=== PATIENT | male | born 1990 | race Caucasian/White ===

== ENCOUNTER 2017-09-25 00:27 | Emergency (ER) | payer BC ==
[~2017-09-25] VITALS: Ht 200.7 cm; Wt 128.0 kg
[~2017-09-25 00:27] MED LIST: CYCL-36 PO; DICL-86 PO; Z.0.NO CURRENT MEDS
[2017-09-25 00:35] VITALS: BP 131/73; PULSE 94; RESP 16; TEMP 98.6
[2017-09-25] MEDS ORDERED: OMEP20TA93 PO (00:41)
--- NOTE | 2017-09-25 00:54 | PD ---
HPI Chief Complaint: Musculoskeletal Complaint Time Seen by Provider: 00:38 Travel History International Travel<30 days: No Contact w/Intl Traveler<30days: No Traveled to known affect area: No History of Present Illness HPI 27-year-old male here for evaluation of right hand and forearm injury. The patient was drinking alcohol at bar when he tried to punch one of the [employer] punching bags. Apparently he punched through the bag and his hand struck the back of the machine. He now has pain and swelling with obvious deformity to the distal forearm and right hand. He complains of some tingling sensation to the hand. No loss of sensation. No other injuries. Pain is 4 of 10, constant , worse with movement and palpation. He is right-hand dominant. [facility] Past Medical History GERD: Yes Influenza Vaccination: No Past Surgical History Tonsillectomy: Yes Social History Alcohol Use: Yes Tobacco Use: No Substance Use: No Allergies-Medications (Allergen,Severity, Reaction): Coded Allergies: No Known Allergies (Verified , 12/26/11) Reported Meds & Prescriptions Reported Meds & Active Scripts Active Reported Omeprazole 20 Mg Tab 20 Mg PO DAILY Review of Systems Except as stated in HPI: all other systems reviewed are Neg Physical Exam Narrative GENERAL: Well-developed, well-nourished, awake, alert, GCS 15, no apparent distress. SKIN: Focused skin assessment warm/dry. Small/superficial abrasion to the dorsum of the right hand between the second and third MCP joint. HEAD: Atraumatic. Normocephalic. EYES: Pupils equal and round. No scleral icterus. No injection or drainage. ENT: Mucous membranes pink and moist. NECK: Trachea midline. No JVD. CARDIOVASCULAR: Regular rate and rhythm. Bilateral distal radial pulses are brisk and equal. Normal capillary refill in right hand. RESPIRATORY: No accessory muscle use. Clear to auscultation. Breath sounds equal bilaterally. GASTROINTESTINAL: Abdomen soft, non-tender, nondistended. MUSCULOSKELETAL: Right hand with diffuse swelling with mild tenderness, right distal forearm with obvious deformity with edema and tenderness. Normal range of flexion and extension in the right wrist and hand. Right elbow and shoulder are without deformity, without tenderness. The rest of his joints and extremities are without deformity, without tenderness, with normal range of motion. All compartments in the right upper extremity are supple. NEUROLOGICAL: Awake and alert. No obvious cranial nerve deficits. Motor grossly within normal limits. Normal speech. PSYCHIATRIC: Appropriate mood and affect; insight and judgment normal. Data Data Last Documented VS Vital Signs Date Time Temp Pulse Resp B/P (MAP) Pulse Ox O2 Delivery O2 Flow Rate FiO2 09/25/17 00:35 98.6 94 16 131/73 (92) Orders Orders Forearm (2vws) (09/25/17 ) Hand, Complete ([id number]) (09/25/17 ) Cbc No Diff, Includes Plts (09/25/17 01:23) Basic Metabolic Panel (Bmp) (09/25/17 01:23) Prothrombin Time / Inr (Pt) (09/25/17 01:23) Act Partial Throm Time (Ptt) (09/25/17 01:23) Ketorolac Inj (Toradol Inj) (09/25/17 02:00) Labs Laboratory Tests Test 09/25/17 01:35 White Blood Count 7.0 TH/MM3 Red Blood Count 4.83 MIL/MM3 Hemoglobin 14.6 GM/DL Hematocrit 40.8 % Mean Corpuscular Volume 84.4 FL Mean Corpuscular Hemoglobin 30.3 PG Mean Corpuscular Hemoglobin Concent 35.9 % Red Cell Distribution Width 13.0 % Platelet Count 218 TH/MM3 Mean Platelet Volume 8.2 FL MDM Medical Decision Making Medical Screen Exam Complete: Yes Emergency Medical Condition: Yes Differential Diagnosis Right hand fracture, right forearm fracture Narrative Course Right hand x-ray: No evidence of acute bony injury. Right forearm x-ray: Angulated transverse fracture of the distal one third shaft of the radius. Case discussed with on-call orthopedist Dr. Thompson who would like the patient to follow-up in his office early this week. Patient would likely need ORIF, however he would like to do this as an outpatient. The patient is happy with this plan. He'll be placed in a sugar tong splint. Diagnosis Primary Impression: Closed right radial fracture Qualified Codes: S52.321A - Displaced transverse fracture of shaft of right radius, initial encounter for closed fracture Referrals: Shawn Thompson Jr., MD 2 days Orthopedist Additional Instructions: Follow-up with orthopedic surgeon Dr. Thompson by calling his office on Wednesday. Return to the emergency department for worsening symptoms or any other concerns. Scripts Hydrocodone-Acetaminophen (Hydrocodone-Acetaminophen) 5-325 mg Tab 1 TAB PO Q6H Y for PAIN, #15 TAB 0 Refills Prov: Jose Ramon Manriquez MD 09/25/17 Disposition: 01 DISCHARGE HOME Condition: Stable Jose Ramon Manriquez MD Sep 25, 2017 00:54
--- NOTE | 2017-09-25 01:34 | RADRPT ---
EXAM DATE/TIME: 09/25/2017 00:44 [facility] COMPARISON: No previous studies available for comparison. INDICATIONS : Right forearm pain from punching a punching bag. MEDICAL HISTORY : None. SURGICAL HISTORY : None. ENCOUNTER: Initial ACUITY: 1 day PAIN SCORE: 0/10 LOCATION: Right hand FINDINGS: Three view examination of the right hand demonstrates no soft tissue swelling, dislocation, or fractu re. The carpal bones appear intact. The interphalangeal and metacarpophalangeal joints are intact. Bony mineralization is normal. CONCLUSION: No evidence of recent bony injury. Terry Dasilva MD on September 25, 2017 at 1:32 Board Certified Radiologist. This report was verified electronically.
--- NOTE | 2017-09-25 01:35 | RADRPT ---
EXAM DATE/TIME: 09/25/2017 00:51 [facility] COMPARISON: No previous studies available for comparison. INDICATIONS : Right forearm pain and deformity from trauma sustained in punching a bag. MEDICAL HISTORY : None. SURGICAL HISTORY : None. ENCOUNTER: Initial ACUITY: 1 day PAIN SCORE: 10/10 LOCATION: Right Forearm FINDINGS: There is a transverse fracture through the distal one third shaft of the radius with one half shaft w idth lateral displacement of the distal fracture fragment and mild ulnar angulation. The ulna is int act. No radio opaque foreign bodies. CONCLUSION: Angulated transverse fracture of the distal one third shaft of the radius. Terry Dasilva MD on September 25, 2017 at 1:33 Board Certified Radiologist. This report was verified electronically.
[2017-09-25 01:51] LABS: HEMATOCRIT 40.8 % (39.0-51.0); HEMOGLOBIN 14.6 GM/DL (13.0-17.0); MEAN CELL VOLUME 84.4 FL (80.0-100.0); MEAN CORPUSCULAR HEMOGLOBIN 30.3 PG (27.0-34.0); MEAN CORPUSCULAR HGB CONC 35.9 % (32.0-36.0); MEAN PLATELET VOLUME 8.2 FL (7.0-11.0); PLATELET COUNT 218 TH/MM3 (150-450); RED BLOOD COUNT 4.83 MIL/MM3 (4.50-5.90)
[2017-09-25] MEDS ORDERED: KETOROLAC TROMETHAMINE 30 MG/ML (IVP) VIAL IV PUSH ONE (02:00)
[2017-09-25] MEDS ORDERED: HYDR-3516 PO (02:02)
[2017-09-25 02:03] LABS: PROTHROMBIN TIME - PATIENT 9.9 SEC (9.8-11.6)
[2017-09-25 02:04] LABS: BICARBONATE 24.2 MEQ/L (21.0-32.0); CALCIUM 8.5 MG/DL (8.5-10.1); CREATININE 0.89 MG/DL (0.60-1.30)
[2017-09-25] MEDS ORDERED: MORPHINE SULFATE 2 MG/ML INJ IV PUSH ONE (02:30)
== END 2017-09-25 02:48 | disposition home or self-care (01) ==
LOC: NEPE 00:27
DX: S52.321A Displaced transverse fracture of shaft of right radius, initial encounter for closed fracture (principal); K21.9 Gastro-esophageal reflux disease without esophagitis; Z79.899 Other long term (current) drug therapy; W22.8XXA Striking against or struck by other objects, initial encounter; Y92.89 Other specified places as the place of occurrence of the external cause
CPT/HCPCS: 73090; 73130; 80048; 85027; 85610; 85730; 96374; 96375; 99284; J1885; J2270